=== PATIENT | male | born 1980 | race Caucasian/White ===

== ENCOUNTER 2020-06-03 07:42 | Outpatient (CLI) | payer BC, SELFPAY ==
--- NOTE | 2020-06-29 01:46 | WPDHOMESLEEP ---
Sleep Study - Home Unattended Date of Study: 06/03/20 Ordering Provider: Moose Leone MD Interpreting Physician: Brionna Medina MD Home Sleep Study Type: Watch PAT Height: 1.7 m Weight: 88.904 kg Body Mass Index: 30.7 Neck Circumference (inches): 18 [place]: 13 Reason for Sleep Study Hypersomnia; A prior sleep study August 02, 2011 showed severe obstructive sleep apnea with AHI of 37.1 associated with heavy snoring and multiple oxygen desaturations. He was titrated to CPAP 15 cm using a medium Quattro fullface mask. BMI was 26.6 at that time. Sleep History Cole Merida is a 40 year-old male with a history of sleep apnea, was tested previously but waited too long after being tested to proceed with CPAP treatment. He frequently snores loudly enough that others complain about it. He rarely awakens at night with belching, heartburn, or coughing. He rarely wakes up gasping for breath at night. He occasionally sweats excessively at night. He never notices his heart pounding or beating irregularly at night. He occasionally falls asleep during the day, occasionally involuntarily and occasionally while driving. He does not fall asleep during physical effort. He does not have loss of muscle tone with strong emotion. 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 He never feels paralyzed on waking or falling asleep. He does not have vivid dreamlike scenes upon awakening or falling asleep. He is not afraid to go to sleep. He does not have nightmares. He frequently remembers his dreams. He rarely has racing thoughts. He occasionally feels sad depressed and anxious. He frequently has muscular tension. He does not notice parts of his body jerking. He rarely kicks at night. He frequently has crawling and aching feelings in his legs. He rarely has leg pain at night. He does not have morning jaw pain and does not grind his teeth during sleep. He frequently is bothered by pain during the day, occasionally is awakened by pain at night. He does not wake up feeling stiff in the morning with sore achy muscles. He has headaches, palpitations, fatigue, insomnia, concentration difficulties and takes antacids regularly. Normal bedtime is 930 to 10:30 p.m. falling asleep within 5-10 minutes waking 1 or 2 times at night. When he wakes at night he will stay awake for 30-60 minutes. He becomes very wide awake and thinking about how he will get back to sleep. He wakes in the morning at 4:30 a.m.. On the weekends he stays awake until 11 or 11:30 p.m. and sleeps until 8 or 8:30 in the morning. He estimates 6-7 hours of sleep at night. He does not take naps. A short nap is not refreshing. He is usually drowsy for 2 hours after waking. Habits: Never smoked tobacco. Three caffeinated beverages a day. No alcohol or recreational drugs. [facility] Past Medical History Medical History (Updated 06/29/20 @ 01:56 by Brionna Medina MD) Adrenal insufficiency (Lg's disease) Bronchitis COVID-19 Male erectile dysfunction, unspecified Obstructive sleep apnea of adult Seasonal allergic rhinitis Surgical History Surgical History (Updated 06/29/20 @ 01:56 by Brionna Medina MD) History of appendectomy Family History Family History Grandparent Acute myocardial infarction Cerebrovascular accident, Onset Age: 85 Other Family history of arthritis Family history of cardiovascular disease Family history of thyroid disease Hypertension Social History Social History Smoking status: Never smoker Second hand tobacco smoke exposure: No Alcohol intake: current Medications Home Medications Medication Instructions Recorded Confirmed Type multivitamin 1 tablet PO DAILY 05/30/19 04/13/20 History guaifenesin 600 mg tablet, 600 mg PO BID #20 tablet 09/17/19 04/13/20 Rx extende
[2020-06-29 01:50] VITALS: BMI 30.7
== END 2020-06-03 07:43 | disposition home or self-care (01) ==
LOC: ANHCSM 07:42
PROVIDERS: PCP Family Medicine; Visit Provider Family Medicine
DX: G47.33 Obstructive sleep apnea (adult) (pediatric) (principal)
CPT/HCPCS: 95800

== ENCOUNTER 2020-07-25 04:52 | Outpatient (CLI) | payer BC, SELFPAY ==
[2020-07-25 19:32] LABS: SARS-CoV-2 RNA PCR Negative
== END 2020-07-25 04:53 | disposition home or self-care (01) ==
LOC: ANHCOVIDDT 04:52
PROVIDERS: PCP Family Medicine; Visit Provider Internal Medicine Critical Care Medicine
DX: R68.89 Other general symptoms and signs (principal); Z20.822 Contact with and (suspected) exposure to COVID-19
CPT/HCPCS: C9803; U0003

== ENCOUNTER 2020-07-28 09:23 | Outpatient (CLI) | payer BC, SELFPAY ==
--- NOTE | 2020-07-31 10:11 | WPDSLEEPSTUD ---
Sleep Study Date of Study: 07/28/20 Ordering Provider: Moose Leone MD Interpreting Physician: Brionna Medina MD Sleep Study Type: CPAP Titration Height: 1.68 m Weight: 88.451 kg Body Mass Index: 31.4 Neck Circumference: 46.99 cm [place]: 13 Reason for Sleep Study Home Sleep Test 06/03/2020 with AHI 46.1, oxygen desaturation index of 34 and a minimum saturation of 89% Sleep History Cole Merida is a 40 year old male had a Home sleep test on 06/03/2020 that showed severe obstructive sleep apnea with an AHI 46.1 and desaturation to 89%. He presents for a titration. He had a titration in the past with an optimal pressure of 15 cm, however he is sensitive to CPAP and was not able to wear this comfortably. He frequently snores loudly enough that others complain about it. He rarely awakens at night with belching, heartburn, or coughing. He rarely wakes up gasping for breath at night. He occasionally sweats excessively at night. He never notices his heart pounding or beating irregularly at night. He occasionally falls asleep during the day, occasionally involuntarily and occasionally while driving. He does not fall asleep during physical effort. He does not have loss of muscle tone with strong emotion. 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 He never feels paralyzed on waking or falling asleep. He does not have vivid dreamlike scenes upon awakening or falling asleep. He is not afraid to go to sleep. He does not have nightmares. He frequently remembers his dreams. He rarely has racing thoughts. He occasionally feels sad depressed and anxious. He frequently has muscular tension. He does not notice parts of his body jerking. He rarely kicks at night. He frequently has crawling and aching feelings in his legs. He rarely has leg pain at night. He does not have morning jaw pain and does not grind his teeth during sleep. He frequently is bothered by pain during the day, occasionally is awakened by pain at night. He does not wake up feeling stiff in the morning with sore achy muscles. He has headaches, palpitations, fatigue, insomnia, concentration difficulties and takes antacids regularly. Normal bedtime is 9:30 to 10:30 p.m. falling asleep within 5-10 minutes, waking 1 or 2 times at night. When he wakes at night, he will stay awake for 30-60 minutes. He becomes very wide awake and thinking about how he will get back to sleep. He wakes in the morning at 4:30 a.m.. On the weekends he stays awake until 11:00 or 11:30 p.m. and sleeps until 8:00 - 8:30 in the morning. He estimates 6-7 hours of sleep at night. He does not take naps. A short nap is not refreshing. He is usually drowsy for 2 hours after waking. Habits: Never smoked tobacco. Three caffeinated beverages a day. No alcohol or recreational drugs. [facility] Past Medical History Medical History Adrenal insufficiency (Maben's disease) Bronchitis COVID-19 (04/22/20) Male erectile dysfunction, unspecified Obstructive sleep apnea of adult Seasonal allergic rhinitis Urticaria Surgical History Surgical History History of appendectomy Family History Family History Grandparent Acute myocardial infarction Cerebrovascular accident, Onset Age: 85 Other Family history of arthritis Family history of cardiovascular disease Family history of thyroid disease Hypertension Social History Social History Smoking status: Never smoker Second hand tobacco smoke exposure: No Alcohol intake: current Substance use: never Substance use type: does not use Medications Home Medications Medication Instructions Recorded Confirmed Type multivitamin 1 tablet PO DAILY 05/30/19 07/22/20 Histo
[2020-07-31 10:57] VITALS: BMI 31.4
== END 2020-07-28 09:24 | disposition home or self-care (01) ==
LOC: ANHCSM 09:25
PROVIDERS: PCP Family Medicine; Visit Provider Family Medicine
DX: G47.33 Obstructive sleep apnea (adult) (pediatric) (principal)
CPT/HCPCS: 95811

== ENCOUNTER 2020-09-06 20:08 | Observation (INO) | payer BC, SELFPAY ==
[2020-09-06] VITALS (12 sets, daily range): BP systolic 114–131; BP diastolic 63–99; PULSE 102–138; RESP 14–30; TEMP 39.2; O2SAT 95–100
--- NOTE | ~2020-09-06 | XR_ITS ---
EXAMINATION: XR chest 1V portable EXAM DATE: 09/06/2020 21:12 INDICATION: Fever and chills. TECHNIQUE: Portable AP frontal chest x-ray was obtained. Comparison is made to prior examination from 07/03/2007. FINDINGS: The lungs are clear. There are no pleural effusions. The cardiomediastinal silhouette is within normal limits. There is no pneumothorax suspected. The bones and soft tissues are unremarkab le. IMPRESSION: No acute cardiopulmonary findings. Reviewed, dictated and finalized at location A. 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
--- NOTE | 2020-09-06 20:17 | ECG_ITS ---
Measurements Intervals [place] Rate: 137 P: 51 MA: 132 QRS: 129 QRSD: 92 T: 32 QT: 253 QTc: 383 Interpretive Statements SINUS TACHYCARDIA RIGHT AXIS DEVIATION BORDERLINE R WAVE PROGRESSION, ANTERIOR LEADS ABNORMAL ECG Electronically Signed On 09-06-2020 21:25:36 LICENSED PRACTICAL NURSE by Fausto Noel D.O.
[2020-09-06] MEDS: SODIUM CHLORIDE 0.9% IV 1,000 ML 999 ML IV CONT ×2 (20:26→22:37)
[2020-09-06 20:28] LABS: Basophils Absolute Auto 0.1 K/mm3 (0.0-0.1); Basophils Percent Auto 0.7 % (0.2-1.2); Eosinophils Percent Auto 0.2 % (0-4.4); Hematocrit 50.6 % (42.0-52.0); Hemoglobin 18.4 g/dL (14.0-18.0); Immature Granulocyte Absolute 0.07 K/mm3 (0.00-0.031); Immature Granulocyte Percent A 0.5 % (0-0.5); Lymphocytes Absolute Auto 4.11 K/mm3 (0.9-3.2); Lymphocytes Percent Auto 31.4 % (18.3-44.2); Mean Corpuscular HGB Conc 36.4 g/dl (32-36); Mean Corpuscular Hemoglobin 28.6 pg (26-34); Mean Corpuscular Volume 78.7 fl (80-100); Monocytes Absolute Auto 1.7 K/mm3 (0.1-0.6); Monocytes Percent Auto 12.6 % (2.6-8.5); Neutrophils Absolute Auto 7.1 K/mm3 (1.3-6.7); Neutrophils Percent Auto 54.6 % (45.5-73.1); Platelet Count Result 216 k/mm3 (150-375); Red Blood Count 6.43 M/mm3 (4.6-6.20); Red Cell Distribution Width 13.2 % (11.5-14.5); White Blood Count 13.1 K/mm3 (4.5-10.0)
--- NOTE | 2020-09-06 20:38 | PC.NURSE ---
reports pt. takes 5mg of steroids a day
[2020-09-06 20:43] LABS: Alanine Aminotransferase 66 U/L (4-50); Albumin Level 4.6 g/dL (3.5-5.1); Alkaline Phosphatase 89 U/L (38-126); Anion Gap 12 mmol/L (8-16); Aspartate Amino Transferase 75 U/L (17-59); Bilirubin,Total 1.3 mg/dL (0.2-1.3); Blood Urea Nitrogen 18 mg/dL (9-20); CRP 8.6 mg/dL (<1.0); Calcium 9.4 mg/dL (8.4-10.2); Carbon Dioxide 26 mmol/L (22-30); Chloride 95 mmol/L (98-107); Estimated CRCL calculation 53 ml/min; Estimated Glomerular Filt Rate 44; Glucose 107 mg/dL (75-110); Sodium 133 mmol/L (137-145)
--- NOTE | 2020-09-06 20:49 | ED.GENADULT ---
HPI - General Adult General Chief complaint: Weakness Stated complaint: adverse reaction to covid vaccine Time Seen by Provider: 09/06/20 20:09 Source: patient and family Mode of arrival: ambulatory Limitations: no limitations History of Present Illness HPI narrative: Patient is 40 years old white male presents with fever started few hours prior to arrival to the emergency room. Patient is a status post first dose of moderna vaccine yesterday at 11 AM. 12 hours later patient developed general body aches, not feeling well, chills and weakness. Patient denies any sore throat, coughing, chest pain, diarrhea, urinary symptoms or vomiting. History of Lg disease did not take his steroid today.. Patient does not smoke or drink or uses drugs. History of COVID-19 infection April 2020. Related Data Home Medications Medication Instructions Recorded Confirmed multivitamin 1 tablet PO DAILY 05/30/19 07/22/20 cetirizine 10 mg tablet 10 mg PO DAILY PRN 07/22/20 07/22/20 cholecalciferol (vitamin D3) 50 2,000 unit PO DAILY cap 07/22/20 07/22/20 mcg (2,000 unit) capsule Allergies Allergy/AdvReac Type Severity Reaction Status Date / Time Penicillins Allergy Unknown Urticaria Verified 01/07/19 15:25 Review of Systems Review of Systems: Narrative: CONSTITUTIONAL: Fever, chills and general weakness EYES: Denies visual changes, redness, or discharge. ENT: Denies rhinorrhea, congestion, sore throat, or otalgia. CARDIOVASCULAR: Denies chest pain, palpitations, or edema. RESPIRATORY: Denies cough or dyspnea. GASTROINTESTINAL: Denies abdominal pain, nausea, vomiting, or diarrhea. GENITOURINARY: Denies dysuria or hematuria. SKIN: Denies rash or itching. MUSCULOSKELETAL: Denies back pain, joint pain, or myalgia. NEUROLOGIC: Denies headache, numbness, or weakness. PSYCHIATRIC: Denies anxiety or depression. [facility] Past Medical History Medical History Adrenal insufficiency (Lg's disease) Bronchitis COVID-19 (04/22/20) Male erectile dysfunction, unspecified Obstructive sleep apnea of adult Seasonal allergic rhinitis Urticaria Surgical History Surgical History History of appendectomy Family History Family History Grandparent Acute myocardial infarction Cerebrovascular accident, Onset Age: 85 Other Family history of arthritis Family history of cardiovascular disease Family history of thyroid disease Hypertension Social History Social History Smoking status: Never smoker Second hand tobacco smoke exposure: No Alcohol intake: current Substance use: never Substance use type: does not use Exam Narrative: Exam Narrative: General appearance: Well-developed, well-nourished Skin: Normal color Head: Normocephalic, nontraumatic Eyes: Clear conjunctiva ENT: Oropharynx normal, ears normal, nose normal Neck: Supple, nontender Chest and respiratory: Airway patent, no respiratory distress, no accessory muscle use Heart: Regular rate/rhythm Abdomen: Soft, nontender, no organomegaly, quiet bowel sounds Vascular: Normal peripheral pulses, normal capillary refill. Musculoskeletal: Normal range of motion, nontender back Neurologic: Alert and oriented ?3, SMOKING PIPE MOUNTER is normal as tested, no gross motor deficit Course Course Emergency Course: Improving Consultations Consultation #1: DR GRIGGS. Consult IN AM Agreed with vancomycin, Rocephin plus Flagyl Date: 09/06/20 Time: 22:55 Vital Signs Vital signs:
[2020-09-06 20:59] LABS: Lactic Acid Reflex 1.7 mmol/L (0.7-2.1)
[2020-09-06] MEDS: HYDROCORTISONE SODIUM SUCCINATE 100 MG/2 ML VIAL IV PUSH (21:18)
[2020-09-06 21:29] LABS: Add Urine Microscopic? YES; Appearance Urine Clear (Clear); Bilirubin Urine Negative (Negative); Blood Urine Negative (Negative); Color Urine Yellow (Yellow); Glucose Urine UA Negative (Negative); Ketones Urine Trace mg/dL (Negative); Leukocyte Esterase Ur Negative LEU/UL (Negative); Mucus Urine Few /lpf; Nitrate Urine Negative (Negative); Protein Urine 2+ mg/dL (Negative); RBC Urine 0-2 /hpf (0-2); Specific Grav Ur 1.029 (1.001-1.035); Squamous Epithelial Cell Urine Rare /hpf (Few); Urobilinogen Urine Negative mg/dL (<2.0); WBC Urine 0-3 /hpf
[2020-09-06] MEDS: metroNIDAZOLE 500 MG/ISO 100ML 500 MG/100 ML BAG 100 MG IVPB (21:46)
[2020-09-06] MEDS: SODIUM CHLORIDE 0.9% IV 1,000 ML 125 ML IV CONT (23:59)
[2020-09-07] VITALS (11 sets, daily range): BP systolic 117–144; BP diastolic 74–78; PULSE 73–108; RESP 14–16; TEMP 36.1–37.1; O2SAT 97–100; BMI 36.3
--- NOTE | 2020-09-07 00:33 | ADMGEN ---
This patient, Cole Merida, was admitted to Medical Room 344-01. Patient/family oriented to hospital policies and general routines including ID bracelet, bed and alarms, visiting hours, pain management, procedures, bathroom and other care routines, personal items, smoking policy, room service/diet, and visiting hours. Information on how to activate the Rapid Response Team has been discussed. Patient/Family are encouraged to report perceived risks to care and to ask questions if they do not understand what they are told or what they should do.
--- NOTE | 2020-09-07 00:44 | PM.IMHP ---
H&P: HPI History of Present Illness Date/Time: 09/07/20 00:44 Chief Complaint: Fever, body aches, chills Narrative: Cole Merida is a 40 year old male with a past medical history of obesity, obstructive sleep apnea, Baca's disease, erectile dysfunction and hypogonadism who presented to the ER from home due to fever, body aches chills and loss of appetite that started at 2:00 a.m. on the . The patient received the Moderna COVID vaccine 09/05/2020. He reports that before he received the vaccine he felt his usual state of health. He was not have any cough, congestion, fever, body aches, nausea, vomiting abdominal pain or dysuria. Approximately 12 hours after receiving the vaccine he began having body aches rigors and loss of appetite. He did not have any nausea or vomiting. Hours but checked his temperature a couple of hours before coming to the ER and he had spiked a fever up to 103?. He had already had COVID infection in April. He had not been having any sore throat, rhinorrhea, loss of sense of taste or smell, or other ill symptoms. 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 The patient reports that he feels much better currently and he is no longer febrile. Temperature was a 102.6?, tachycardic and tachypneic. In the ER he received Rocephin, Flagyl and vancomycin in the ER due to his SIRS. The patient does have obstructive sleep apnea. He reports that he has intermittently compliant with his BiPAP therapy. BiPAP was ordered for this hospitalization but the patient has already refused BiPAP. Review of Systems Review of Systems: Narrative: 12 systems were reviewed with pertinent positives and negatives per HPI. Except as documented in the HPI, all other systems were reviewed and are negative. 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 Hypogonadism in male Male erectile dysfunction, unspecified Obesity Obstructive sleep apnea of adult With sleep study demonstrating need for BiPAP 02/07 using an airfit F20 fullface mask Seasonal allergic rhinitis Urticaria Surgical History Surgical History (Updated 09/07/20 @ 00:51 by Frannie Sarmiento DO) History of appendectomy 2007 Family History Family History Grandparent Acute myocardial infarction Cerebrovascular accident, Onset Age: 85 Other Family history of arthritis Family history of cardiovascular disease Family history of thyroid disease Hypertension Social History Social History (Updated 09/07/20 @ 03:11 by Frannie Sarmiento DO) Social History: He lives in [place] with his of 20 years. 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 They have a 14-year-old and a 10-year-old. He rarely drinks alcohol. Primary care physician: Dr. Moose Leone Surrogate decision maker: Smoking status: Never smoker Second hand tobacco smoke exposure: No Alcohol intake: never Substance use: never Substance use type: does not use Gender identity (if verbalized by the patient): Male Sexual Orientation (if Verbalized by the Patient): Straight or Heterosexual Spiritual care concerns: No Meds Home Medications and Allergies Home Medications Medication Instructions Recorded Confirmed Type multivitamin 1 tablet PO DAILY 05/30/19 09/07/20 History omeprazole magnesium 20 mg 20 mg PO DAILY #30 tablet 04/13/20 09/07/20 Rx tablet,delayed release prednisone 5 mg tablet 5 mg PO DAILY #90 tablet 06/10/20 09/07/20 Rx cholecalciferol (vitamin D3) 50 2,000 unit PO DAILY cap 07/22/20 09/07/20 History mcg (2,000 unit) capsule fluticasone propionate [Allergy 1 spray NASAL BID PRN 09/07/20 09/07/20 History Relief (fluti
[2020-09-07] MEDS: metroNIDAZOLE 500 MG/ISO 100ML 500 MG/100 ML BAG 100 MG IVPB (05:31)
[2020-09-07 05:44] LABS: Basophils Percent Auto 0.4 % (0.2-1.2); Hematocrit 46.3 % (42.0-52.0); Hemoglobin 16.9 g/dL (14.0-18.0); Immature Granulocyte Absolute 0.04 K/mm3 (0.00-0.031); Immature Granulocyte Percent A 0.5 % (0-0.5); Lymphocytes Absolute Auto 1.17 K/mm3 (0.9-3.2); Lymphocytes Percent Auto 14.3 % (18.3-44.2); Mean Corpuscular HGB Conc 36.5 g/dl (32-36); Mean Corpuscular Hemoglobin 28.7 pg (26-34); Mean Corpuscular Volume 78.6 fl (80-100); Monocytes Absolute Auto 0.7 K/mm3 (0.1-0.6); Monocytes Percent Auto 8.9 % (2.6-8.5); Neutrophils Absolute Auto 6.2 K/mm3 (1.3-6.7); Neutrophils Percent Auto 75.9 % (45.5-73.1); Platelet Count Result 184 k/mm3 (150-375); Red Blood Count 5.89 M/mm3 (4.6-6.20); Red Cell Distribution Width 12.5 % (11.5-14.5); White Blood Count 8.2 K/mm3 (4.5-10.0)
[2020-09-07 06:55] LABS: Hepatitis B Surface Antigen Negative (Negative)
[2020-09-07 06:56] LABS: Alanine Aminotransferase 53 U/L (4-50); Albumin Level 3.6 g/dL (3.5-5.1); Alkaline Phosphatase 72 U/L (38-126); Anion Gap 6 mmol/L (8-16); Aspartate Amino Transferase 53 U/L (17-59); Bilirubin,Total 0.8 mg/dL (0.2-1.3); Blood Urea Nitrogen 15 mg/dL (9-20); Calcium 8.3 mg/dL (8.4-10.2); Carbon Dioxide 24 mmol/L (22-30); Chloride 103 mmol/L (98-107); Estimated CRCL calculation 75 ml/min; Estimated Glomerular Filt Rate > 60; Glucose 197 mg/dL (75-110); Potassium 5.2 mmol/L (3.4-5.0); Sodium 133 mmol/L (137-145)
[2020-09-07 06:57] LABS: Thyroid Stimulating Hormone Reflex 0.446 uIU/mL (0.465-4.68)
[2020-09-07 07:01] LABS: HAV RESULT Negative (Negative); Hepatitis B Core IgM Result Negative (Negative)
[2020-09-07 07:13] LABS: Hepatitis C Virus Antibody Negative (Negative)
[2020-09-07 07:17] LABS: Cholesterol 162 mg/dL (0-200); HDL Direct 31 mg/dL; Triglycerides 306 mg/dL (<150)
[2020-09-07 07:32] LABS: LDL Cholesterol Direct 53 mg/dL
[2020-09-07 07:53] LABS: Prostate Specific Antigen 0.4 ng/mL (< OR = 4.0)
[2020-09-07] MEDS: predniSONE 5 MG TABLET PO (08:15)
[2020-09-07] MEDS: CHOLECALCIFEROL 1,000 UNITS TABLET 2000 UNITS PO (08:15)
[2020-09-07] MEDS: ENOXAPARIN 40 MG/0.4 ML SYRINGE SUB-Q (08:15)
[2020-09-07] MEDS: PANTOPRAZOLE SOD SESQUIHYDRATE 20 MG TAB PO (08:15)
[2020-09-07] MEDS: MULTIVITAMINS THERAPEUTIC TAB (*BKC) 1 TABLET PO (08:15)
[2020-09-07 09:15] LABS: Free T4 Free Thyroxine Reflex 1.12 ng/dL (0.78-2.19)
[2020-09-07] MEDS: SODIUM CHLORIDE 0.9% IV 1,000 ML 125 ML IV CONT ×2 (10:13→19:12)
[2020-09-07 10:29] LABS: Total Triiodothyronine (T3) 0.97 NG/ML (0.97-1.69)
[2020-09-07 10:33] LABS: Hemoglobin A1C 5.9 % (<5.7)
[2020-09-07 12:21] LABS: Anion Gap 6 mmol/L (8-16); Blood Urea Nitrogen 13 mg/dL (9-20); Calcium 7.9 mg/dL (8.4-10.2); Carbon Dioxide 23 mmol/L (22-30); Chloride 103 mmol/L (98-107); Estimated CRCL calculation 98 ml/min; Estimated Glomerular Filt Rate > 60; Glucose 141 mg/dL (75-110); Potassium 3.6 mmol/L (3.4-5.0); Sodium 132 mmol/L (137-145)
[2020-09-07 12:54] LABS: Influenza Control Positive
--- NOTE | 2020-09-07 13:15 | PM.IMPN ---
Progress Note: A&P Assessment and Plan (1) SIRS (systemic inflammatory response syndrome): Code(s): R65.10 - Systemic inflammatory response syndrome (SIRS) of non-infectious origin without acute organ dysfunction Status: Acute Assessment and Plan: Likely due to immune reaction from the COVID vaccine -patient's UA and chest x-ray is without pathology -flu is negative -patient has a normal white blood cell count and has not had any further temperatures -he was initially placed on ceftriaxone, Flagyl and vancomycin in the ER but I am going to stop this at this time -I will see how he does overnight without antibiotics and await his blood cultures. -if he continues to have fevers or his blood cultures are positive, will reassess -he started having diarrhea yesterday after the vaccine and had about 3 episodes today. I do not suspect an infectious process but he continues to have diarrhea and fevers, may consider stool cultures (2) Acute dehydration: Code(s): E86.0 - Dehydration Status: Acute Assessment and Plan: Resolved, creatinine back to baseline (3) Adrenal insufficiency (Glacier's disease): Code(s): E27.1 - Primary adrenocortical insufficiency Status: Acute Assessment and Plan: Initially he thought he might of had an Glacier's crisis -his sodium is low but his potassium is normal as well as glucose. I do not think he needs stress dosing of steroids at this time -he really needs to follow-up with an email marketing executive and I spoke to him about this -continue home prednisone, he gets this prescription from his primary care physician (4) Obstructive sleep apnea of adult: Code(s): G47.33 - Obstructive sleep apnea (adult) (pediatric) Status: Acute Assessment and Plan: Continue CPAP (5) Obesity: Qualifiers: Obesity type: due to excess calories Obesity classification: adult class 2 (BMI 35 - 39.9) Serious obesity comorbidity presence: with serious comorbidity Body mass index: BMI 36.0-36.9 Qualified Code(s): E66.01 - Morbid (severe) obesity due to excess calories; Z68.36 - Body mass index [BMI] 36.0-36.9, adult Code(s): E66.9 - Obesity, unspecified Status: Acute Assessment and Plan: Patient states he eats a lot of pasta and bread -plans to adjust his diet and try to lose weight (6) Prediabetes: Code(s): R73.03 - Prediabetes Status: Acute Assessment and Plan: I had a long talk with him about this -he eats a lot of bread and pasta -I encouraged more meat and vegetables -he is going to try to work on his diet and follow-up with his primary care physician in 3 months. If his A1c does not improve, he may benefit from metformin Time Spent With Patient Time with patient: 25 - 35 minutes Subjective Date/time seen: 09/07/20 13:15 Interval history: Pt is a 40-year-old male here for sirs. Patient was seen today and is feeling better compared to yesterday. He says he has mild chills but overall much improved from yesterday. He still feels run down and is having some diarrhea that started yesterday. He has a decreased appetite as well but no nausea vomiting. He denies chest pain, shortness of breath, leg swelling, arm pain, headaches, change in vision, or dysuria. He says he has no open wounds or rashes. We spoke about his A1c and what pre diabetes entails. He no longer sees an email marketing executive and gets his prednisone from his primary care physician Review of Systems Review of Systems: All systems reviewed & are unremarkable except as noted in HPI and below Exam Narrative: Exam Narrative: General: Well developed well nourished patient in NAD HEENT: normocephalic Neck: supple Neuro: Alert and oriented x4 CV: Slightly tachycardic on exam 1 O2 but appeared regular with no extra beats or murmurs Resp:CTA Abd: Soft, non distended. No pain to palpation. Positive bowel sounds Extremities: N
--- NOTE | 2020-09-07 13:16 | WPDINFPN2 ---
Progress Note: A&P Assessment and Plan (1) Fever: Code(s): R50.9 - Fever, unspecified Status: Acute Assessment and Plan: fever, not immunosuppressed REC No antimicrobials. No biologic basis to suspect that the vaccine directly caused [place] crisis, but the febrile illness may have done so indirectly. Subjective Date/time seen: 09/07/20 13:16 Objective Data Vital Signs Vital Signs: Vital Signs - 24 hr 09/06/20 20:12 09/06/20 20:18 09/06/20 20:21 Temperature 39.2 C H Pulse Rate 138 H 136 H 137 H Respiratory Rate 20 21 H Blood Pressure 131/99 H Pulse Oximetry 100 99 09/06/20 20:30 09/06/20 20:45 09/06/20 20:46 Temperature Pulse Rate 135 H 127 H 125 H Respiratory Rate 30 H 17 19 Blood Pressure 122/86 Pulse Oximetry 95 96 09/06/20 21:00 09/06/20 21:01 09/06/20 21:19 Temperature Pulse Rate 120 H 122 H 121 H Respiratory Rate 19 17 14 Blood Pressure 116/63 Pulse Oximetry 100 98 09/06/20 21:30 09/06/20 21:31 09/06/20 22:31 Temperature Pulse Rate 109 H 112 H 102 H Respiratory Rate 16 16 18 Blood Pressure 114/75 114/76 Pulse Oximetry 96 97 100 09/07/20 00:00 09/07/20 00:28 09/07/20 04:00 Temperature 36.1 C L Pulse Rate 93 73 77 Respiratory Rate 16 Blood Pressure 117/78 Pulse Oximetry 98 09/07/20 05:35 09/07/20 08:00 09/07/20 09:57 Temperature 37.1 C Pulse Rate 74 86 Respiratory Rate 14 Blood Pressure 144/76 H Pulse Oximetry 97 97 09/07/20 12:00 Temperature Pulse Rate 100 Respiratory Rate Blood Pressure Pulse Oximetry Intake/Output Intake/Output: Intake & Output 09/04/20 09/05/20 09/06/20 09/07/20 23:59 23:59 23:59 23:59 Intake Total 2250 2040 Output Total 800 Balance 2250 1240 Meds/Results Medications: Active Medications Generic Name Dose Route Start Last Admin Trade Name Freq PRN Reason Stop Dose Admin Enoxaparin Sodium 40 mg 09/07/20 09:00 09/07/20 08:15 Enoxaparin 40 Mg/0.4 Ml Syringe SUB-Q 40 mg DAILY JOHN Administration Fluticasone Propionate 1 spray 09/07/20 02:44 Fluticasone Propionate 0.05% Na Spr 16 Gm Btl (*Bkc) NASAL BID PRN Allergic Symptoms Acetaminophen 1,000 mg in 100 mls @ 400 mls/hr 09/06/20 22:48 Ofirmev 1,000 Mg Ivpb IVPB 09/07/20 22:49 Q6H PRN Mild Pain (1-3) or Fever Sodium Chloride 1,000 mls @ 125 mls/hr 09/06/20 22:50 09/07/20 10:13 Normal Saline Iv IV CONT 125 mls/hr .Q8H JOHN Administration Multivitamins Therapeutic 1 tablet 09/07/20 09:00 09/07/20 08:15 Multivitamins Therapeutic Tab (*Bkc) PO 1 tablet DAILY JOHN Administration Ondansetron HCl 4 mg 09/06/20 22:48 Ondansetron Inj 4 Mg/2 Ml Vial IV PUSH Q4H PRN Nausea Pantoprazole Sodium 20 mg 09/07/20 09:00 09/07/20 08:15 Pantoprazole Sod Sesquihydrate 20 Mg Tab PO 20 mg QAM JOHN Administration Prednisone 5 mg 09/07/20 08:00 09/07/20 08:15 Prednisone 5 Mg Tablet PO 5 mg DAILY@0800 JOHN Administration Vitamin D 2,000 units 09/07/20 09:00 09/07/20 08:15 Cholecalciferol 1,000 Units Tablet PO 2,000 units DAILY JOHN Administration Radiology Results: ITS Impressions Chest X-Ray 09/06/20 21:19 IMPRESSION: No acute cardiopulmonary findings. Labs Labs: Laboratory Results - last 24 hr 09/06/20 09/06/20 09/06/20 20:21 20:21 20:21 WBC 13.1 H RBC 6.43 H Hgb 18.4 H Hct 50.6 MCV 78.7 L MCH 28.6 MCHC 36.4 H RDW 13.2 Plt Count 216 MPV 9.0 Immature Gran % (Auto) 0.5 Neut % (Auto) 54.6 Lymph % (Auto) 31.4 [place] % (Auto) 12.6 H Eos % (Auto) 0.2 Baso % (Auto) 0.7 Lymph # (Auto) 4.11 H [place] # (Auto) 1.7 H Eos # (Auto) 0.0 Baso # (Auto) 0.1 Abs Immat Gran (auto) 0.07 H Absolute Neuts (auto) 7.1 H Absolute Nucleated RBC 0.0 Nucleated RBC % 0.0 PT 14.0 INR 1.0 APTT 31.0 Sodium 133 L Potassium 4.0 Chl
--- NOTE | 2020-09-07 16:15 | CONS_ITS ---
DATE OF CONSULTATION: 09/07/2020 REASON FOR CONSULTATION: Fever. HISTORY OF PRESENT ILLNESS: A 40-year-old male with [place] disease of some 14 years' duration. He is occasionally missing his prednisone dose, but typically is very adherent. He presented to the emergency room last evening with 24 hours of fever as well as generalized weakness and lassitude. He had received the initial coronavirus vaccine 1 day prior to admission, some 12 hours before his vaccine. He has had no left arm pain. No previous vaccine intolerance. He did have acute coronavirus infection in April. His weakness has resolved somewhat today, but remains present overall. He has had 3 to 4 loose bowel movements since arrival last evening with some liquid component as well. No antibiotics recently for any reason otherwise. He has been given ceftriaxone, vancomycin, and metronidazole. Consultation requested. ALLERGIES: PENICILLIN CAUSED URTICARIA. PRESENT MEDICATIONS: Prednisone is 5 mg daily. HABITS: No tobacco. No alcohol to excess. FAMILY HISTORY: Not pertinent to his present illness. SOCIAL HISTORY: He is . 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 PAST MEDICAL HISTORY: Prior [place] thyroiditis, hypogonadism, obesity, ELIO, seasonal allergic rhinitis, and prior appendectomy. REVIEW OF SYSTEMS: 5-point review otherwise negative. PHYSICAL EXAMINATION: GENERAL: This is a middle-aged male who appears actual age in no distress. VITAL SIGNS: On arrival, T 39.2, now afebrile, 144/76, 74, 14, 98% room air. SKIN: No generalized rashes. No erythroderma. EENT: The conjunctivae are normal. Pupils equal, round, reactive to light. Extraocular movements are normal. NECK: No masses, thyromegaly. LUNGS: Clear to auscultation and percussion. CARDIAC: Regular rate and rhythm. No murmur, gallop, rub. ABDOMEN: Soft, nontender. No organomegaly. No masses. EXTREMITIES: No clubbing, cyanosis, edema. LABORATORY DATA: Blood cultures, no growth after a very short incubation. His white count 8.2, hemoglobin 16.9, platelets 184. Chemistry panel normal other than mild hyponatremia. Glucose of 141, ALT 53, AST same. Protein 6. His urinalysis, no evidence of infection. Hepatitis panel nonreactive. Influenza screen negative. Coronavirus assay 07/25/2020, nonreactive. RADIOLOGY: Chest x-ray normal. ASSESSMENT: 1. Acute febrile illness, possibly due to his coronavirus vaccination. No localizing findings other than diarrhea. He has no abdominal abnormalities on exam. 2. Lg disease, on replacement, not immunocompromised. RECOMMENDATIONS: 1. No antibiotics at this time. 2. Follow up on above microbiology testing. 3. Further coronavirus vaccine is probably inadvisable. Thank you very much for asking me to see him. ORLY ISRAEL M.D. HELMINTHOLOGY TEACHER HELMINTHOLOGY TEACHER D I MT: Paulo
[2020-09-08] VITALS: PULSE 87
[2020-09-08] MEDS: SODIUM CHLORIDE 0.9% IV 1,000 ML 125 ML IV CONT (03:15)
[2020-09-08 04:00] VITALS: PULSE 93
[2020-09-08 06:09] LABS: Anion Gap 5 mmol/L (8-16); Blood Urea Nitrogen 10 mg/dL (9-20); Calcium 8.5 mg/dL (8.4-10.2); Carbon Dioxide 26 mmol/L (22-30); Chloride 104 mmol/L (98-107); Estimated CRCL calculation 89 ml/min; Estimated Glomerular Filt Rate > 60; Glucose 107 mg/dL (75-110); Potassium 3.8 mmol/L (3.4-5.0); Sodium 135 mmol/L (137-145)
[2020-09-08 06:26] VITALS: BP 129/80; PULSE 97; RESP 16; TEMP 36.5; O2SAT 98
[2020-09-08 06:35] LABS: Basophils Percent Auto 0.3 % (0.2-1.2); Eosinophils Absolute Auto 0.2 K/mm3 (0-0.3); Eosinophils Percent Auto 1.5 % (0-4.4); Hemoglobin 14.4 g/dL (14.0-18.0); Immature Granulocyte Absolute 0.04 K/mm3 (0.00-0.031); Immature Granulocyte Percent A 0.4 % (0-0.5); Lymphocytes Percent Auto 21.7 % (18.3-44.2); Mean Corpuscular Hemoglobin 28.5 pg (26-34); Mean Corpuscular Volume 79.2 fl (80-100); Mean Platelet Volume 9.5 fl (7.4-10.4); Monocytes Absolute Auto 1.1 K/mm3 (0.1-0.6); Monocytes Percent Auto 10.4 % (2.6-8.5); Neutrophils Percent Auto 65.7 % (45.5-73.1); Platelet Count Result 182 k/mm3 (150-375); Red Blood Count 5.05 M/mm3 (4.6-6.20); Red Cell Distribution Width 12.8 % (11.5-14.5); White Blood Count 10.6 K/mm3 (4.5-10.0)
[2020-09-08 06:40] LABS: Cortisol Random 7.18 ug/dL
--- NOTE | 2020-09-08 07:47 | ECG_ITS ---
Measurements Intervals [place] Rate: 101 P: 65 ME: 147 QRS: 54 QRSD: 103 T: 1 QT: 317 QTc: 412 Interpretive Statements SINUS TACHYCARDIA BORDERLINE ST-T WAVE ABNORMALITY- INFERIOR LEADS BASELINE ARTIFACT- I, III, V6 BORDERLINE ECG Electronically Signed On 09-08-2020 8:14:34 [employer]ION CONTROL ENGINEER by Fausto Noel D.O.
[2020-09-08 08:00] VITALS: PULSE 102
[2020-09-08] MEDS: CHOLECALCIFEROL 1,000 UNITS TABLET 2000 UNITS PO (08:54)
[2020-09-08] MEDS: PANTOPRAZOLE SOD SESQUIHYDRATE 20 MG TAB PO (08:54)
[2020-09-08] MEDS: predniSONE 5 MG TABLET PO (08:54)
[2020-09-08] MEDS: MULTIVITAMINS THERAPEUTIC TAB (*BKC) 1 TABLET PO (08:54)
[2020-09-08] MEDS: ENOXAPARIN 40 MG/0.4 ML SYRINGE SUB-Q (08:55)
--- NOTE | 2020-09-08 12:21 | WPDINFPN2 ---
Progress Note: A&P Assessment and Plan (1) Fever: Code(s): R50.9 - Fever, unspecified Status: Acute Assessment and Plan: 1. fever due to vaccine reaction 2. Adrenal insufficiency, on replacement, not immunosuppressed REC No antimicrobials. Ok with me for steroids, although they may blunt vaccine efficacy. He should not get the Pfizer nor the Moderna vaccine in the future. Based on preliminary information, the Dario&Dario or the [employer] vaccine should be safe for him, but neither are approved as yet. Unless FDA indicates otherwise when approved, I would give him a single dose of one of those (the J&J will be a single dose for everyone) Subjective Date/time seen: 09/08/20 12:21 Interval history: some dyspnea last night, no desaturation. Fatigue is better. Just took shower without difficulty Exam Narrative: Exam Narrative: afebrile Const: General: no acute distress Resp: Effort & Inspection: normal respiratory effort Auscultation: clear to auscultation bilaterally Cardio: Rate: regular rate Rhythm: regular rhythm Heart sounds: no murmurs Skin: General skin exam: normal color and no rashes or lesions noted Other: left upper arm no erythema nor fluctuance nor tenderness Objective Data Vital Signs Vital Signs: Vital Signs - 24 hr 09/07/20 14:00 09/07/20 16:00 09/07/20 20:00 Temperature 36.8 C Pulse Rate 108 H 94 102 H Respiratory Rate 16 Blood Pressure 123/76 Pulse Oximetry 100 09/07/20 21:59 09/08/20 00:00 09/08/20 04:00 Temperature 36.9 C Pulse Rate 95 87 93 Respiratory Rate 16 Blood Pressure 129/74 Pulse Oximetry 98 09/08/20 06:26 09/08/20 08:00 Temperature 36.5 C Pulse Rate 97 102 H Respiratory Rate 16 Blood Pressure 129/80 Pulse Oximetry 98 Intake/Output Intake/Output: Intake & Output 09/05/20 09/06/20 09/07/20 09/08/20 23:59 23:59 23:59 23:59 Intake Total 2250 3620 2820 Output Total 800 700 Balance 2250 2820 2120 Meds/Results Medications: Active Medications Generic Name Dose Route Start Last Admin Trade Name Freq PRN Reason Stop Dose Admin Enoxaparin Sodium 40 mg 09/07/20 09:00 09/08/20 08:55 Enoxaparin 40 Mg/0.4 Ml Syringe SUB-Q 40 mg DAILY JOHN Administration Fluticasone Propionate 1 spray 09/07/20 02:44 Fluticasone Propionate 0.05% Na Spr 16 Gm Btl (*Bkc) NASAL BID PRN Allergic Symptoms Sodium Chloride 1,000 mls @ 100 mls/hr 09/06/20 22:50 09/08/20 12:08 Normal Saline Iv IV CONT Infused .Q10H JHON Infusion Multivitamins Therapeutic 1 tablet 09/07/20 09:00 09/08/20 08:54 Multivitamins Therapeutic Tab (*Bkc) PO 1 tablet DAILY JOHN Administration Ondansetron HCl 4 mg 09/06/20 22:48 Ondansetron Inj 4 Mg/2 Ml Vial IV PUSH Q4H PRN Nausea Pantoprazole Sodium 20 mg 09/07/20 09:00 09/08/20 08:54 Pantoprazole Sod Sesquihydrate 20 Mg Tab PO 20 mg QAM JOHN Administration Prednisone 5 mg 09/07/20 08:00 09/08/20 08:54 Prednisone 5 Mg Tablet PO 5 mg DAILY@0800 JOHN Administration Vitamin D 2,000 units 09/07/20 09:00 09/08/20 08:54 Cholecalciferol 1,000 Units Tablet PO 2,000 units DAILY JOHN Administration Radiology Results: ITS Impressions Chest X-Ray 09/06/20 21:19 IMPRESSION: No acute cardiopulmonary findings. Labs Labs: Laboratory Results - last 24 hr 09/07/20 09/07/20 09/08/20 11:45 12:22 05:40 WBC 10.6 H RBC 5.05 Hgb 14.4 Hct 40.0 L MCV 79.2 L MCH 28.5 MCHC 36.0 RDW 12.8 Plt Count 182 MPV 9.5 Immature Gran % (Auto) 0.4 Neut % (Auto) 65.7 Lymph % (Auto) 21.7 [place] % (Auto) 10.4 H Eos % (Auto) 1.5 Baso % (Auto) 0.3 Lymph # (Auto) 2.30 [place] # (Auto) 1.1 H Eos # (Auto) 0.2 Baso # (Auto) 0.0 Abs Immat Gran (auto) 0.04 H Absolute Neuts (auto) 7.0 H Absolute Nucleated RBC 0.0 Nucleated RBC % 0.0 Sodium 132 L Potassium 3.6
[2020-09-08 12:23] VITALS: PULSE 102
[2020-09-08 14:11] VITALS: BP 134/91; PULSE 86; RESP 14; TEMP 36.3; O2SAT 98
--- NOTE | 2020-09-08 14:13 | PC.NURSE ---
Reviewed documentation and observe patient care provided by Carl Reynolds [id number]
--- NOTE | 2020-09-08 15:34 | PM.DS ---
DS: Admitting Diagnosis Admitting Diagnosis Admitting Diagnosis: Febrile illness, reaction from COVID vaccine DS: Discharge Diagnosis Discharge Diagnosis (1) SIRS (systemic inflammatory response syndrome): Code(s): R65.10 - Systemic inflammatory response syndrome (SIRS) of non-infectious origin without acute organ dysfunction Status: Acute Assessment and Plan: Date of Admission 09/06/20 Date of Discharge/DOS 09/08/20 Mr. Merida is a pleasant 40yo M with [place]'s disease who presented to the ED for evaluation of fever, body aches, chills, and lack of appetite that started early childhood specialist several hours after receiving the first dose of his Moderna COVID vaccine the day prior to arrival. He had COVID-19 infection in April 2020 with mild symptoms and notes he recovered well. He had a fever on arrival T max 102.6F. Urinalysis and chest x-ray unremarkable. Flu swab negative. Normal WBC count and no further fevers. Infectious disease specialist was consulted by ED provider and recommended the patient had febrile illness as a reaction to his vaccine, no infectious process was suspected thus no antibiotics are indicated at this time. He was started on empiric antibiotics with rocephin, flagyl, and vancomycin from the ED which were discontinued. Final blood cultures are negative. ID recommended he not receive his second dose of Moderna or a Pfizer vaccine at this time, but that he may respond better to an Astrazeneca or J&J vaccine once they are available. He was feeling clinically improved and was comfortable with plan for discharge home. He had developed a few episodes of diarrhea and was instructed to follow up with PCP for hospital follow up, follow up with PCP for stool testing if diarrhea persists. He is hemodynamically stable for discharge 09/08/20. (2) Acute dehydration: Code(s): E86.0 - Dehydration Status: Resolved Assessment and Plan: Cr 1.7 on arrival, improved to 1.0 with IV hydration. (3) Adrenal insufficiency ([place]af[place]'s disease): Code(s): E27.1 - Primary adrenocortical insufficiency Status: Acute Assessment and Plan: Initially he thought he might have had an Chaffee's crisis Sodium is low but his potassium is normal as well as glucose. It was not felt he needed stress dosing of steroids at this time We recommend he re-establish with endocrinology. Continue home prednisone. (4) Obstructive sleep apnea of adult: Code(s): G47.33 - Obstructive sleep apnea (adult) (pediatric) Status: Chronic Assessment and Plan: Continue CPAP (5) Obesity: Qualifiers: Obesity type: due to excess calories Obesity classification: adult class 2 (BMI 35 - 39.9) Serious obesity comorbidity presence: with serious comorbidity Body mass index: BMI 36.0-36.9 Qualified Code(s): E66.01 - Morbid (severe) obesity due to excess calories; Z68.36 - Body mass index [BMI] 36.0-36.9, adult Code(s): E66.9 - Obesity, unspecified Status: Chronic Assessment and Plan: He described eating a lot of pasta and bread. Educated on lifestyle modifications. (6) Prediabetes: Code(s): R73.03 - Prediabetes Status: Acute Assessment and Plan: Hgb A1c 5.9%. Diet changes and lifestyle modifications discussed. He is going to work on his diet and follow up with his PCP. DS: Summary Hospital Course Hospital Course: See above. Time Spent with Patient Time attestation: Total time spent providing and/or coordinating discharge services: 35 minutes Exam Narrative: Exam Narrative: General: Male sitting up in bed comfortably in no acute distress. HEENT: normocephalic, EOMI, oral mucosa moist. Neck: supple Neur
[2020-09-11 18:46] LABS: Testosterone Free 20.3 pg/mL (35.0-155.0); Testosterone Total 63 ng/dL (250-1100)
== END 2020-09-08 16:15 | disposition home or self-care (01) ==
LOC: ANHED 22:59 → ANH3MED 23:33
PROVIDERS: Physician Assistant; Admitting Provider Internal Medicine; Emergency Provider Emergency Medicine; PCP Family Medicine; Visit Provider Physician Assistant
DX: R50.9 Fever, unspecified (principal); R65.10 Systemic inflammatory response syndrome (SIRS) of non-infectious origin without acute organ dysfunction; T50.B95A Adverse effect of other viral vaccines, initial encounter; E66.01 Morbid (severe) obesity due to excess calories; Z68.36 Body mass index [BMI] 36.0-36.9, adult; G47.33 Obstructive sleep apnea (adult) (pediatric); E27.1 Primary adrenocortical insufficiency; R73.03 Prediabetes; Z86.16 Personal history of COVID-19; Z79.899 Other long term (current) drug therapy
CPT/HCPCS: 36415; 71045; 80048; 80053; 80061; 80074; 81001; 82306; 82533; 83036; 83605; 84153; 84402; 84403; 84439; 84443; 84480; 85025; 85610; 85730; 86140; 87040; 87804; 93005; 96361; 96365; 96366; 96367; 96372; 96375; 99285; A9270; G0378; J0131; J0696; J1650; J1720; J3370; J7030; J7512

== ENCOUNTER → 2025-06-16 10:40 | Outpatient (CLI) | payer OTHER, SELFPAY ==
--- NOTE | ~2025-06-16 | XR_ITS ---
XR hand RT 2V 06/16/2025 11:01 INDICATION: Right hand pain PROCEDURE: 3 views right hand COMPARISON: No prior studies for comparison. FINDINGS: Fracture, dislocation or subluxation is not identified. The soft tissues appear within normal limits. No foreign bodies are identified. IMPRESSION: 1: NO ACUTE BONE OR JOINT ABNORMALITY IDENTIFIED. Reviewed, dictated and finalized at location I. AN
--- NOTE | ~2025-06-16 | XR_ITS ---
EXAMINATION: XR hand LT min 3V, 06/16/2025 10:48 [employer] HISTORY: INJURY/ARTHRITIS COMPARISON: No comparisons available. Findings: No acute fracture or malalignment. No significant degenerative changes. Soft tissues unremarkable. Impression: No acute fracture or malalignment. Reviewed, dictated and finalized at location P. [employer]IDENT [employer]WORK Impression: No acute fracture or malalignment.
== END ==
LOC: EXPTRAD 10:42
PROVIDERS: PCP Family Medicine; Visit Provider Family Medicine
DX: M79.642 Pain in left hand (principal); M79.641 Pain in right hand
CPT/HCPCS: 73120; 73130